=== PATIENT | female | born 1985 | race Caucasian/White ===

== ENCOUNTER 2016-12-13 13:00 | Outpatient (RCR) | payer OTHER ==
[2016-12-09 13:46] LABS: BASO % 0.6 % (0.0-2.0); EOS # 0.1 (0.0-0.7); EOS % 0.8 % (0-4.0); GRAN # 5.7 (1.4-6.5); GRAN % 85.8 % (42.2-75.2); HEMOGLOBIN 12.8 g/dl (12.5-16.0); LYMPH # 0.4 (1.2-3.4); LYMPH % 5.4 % (20.0-51.0); MEAN CELL VOLUME 89 fl (80.0-100.0); MEAN CORPUSCULAR HEMOGLOBIN 31 pg (27.0-31.0); MEAN CORPUSCULAR HGB CONC 35 g/dl (33.0-37.0); MEAN PLATELET VOLUME 10.1 fl (7.4-10.4); MONO # 0.5 (0.1-0.6); MONO % 7.2 % (1.7-9.3); PLATELET COUNT 323 K/mm3 (130-400); RED BLOOD COUNT 4.11 M/mm3 (4.10-5.30); REDCELL DISTRIBUTION WIDTH-CV 12.2 % (11.5-14.5); WHITE BLOOD COUNT 6.6 K/mm3 (4.8-10.8)
[2016-12-09 13:56] LABS: ADJUSTED CALCIUM 9.4 mg/dL (8.4-10.2); ALBUMIN 4.1 gm/dL (3.5-5.0); BILIRUBIN,TOTAL 0.7 mg/dL (0.0-1.0); CALCIUM 9.5 mg/dL (8.4-10.2); CREATININE, serum 0.91 mg/dL (0.52-1.25); TOTAL PROTEIN 7.4 gm/dL (6.4-8.2)
[2016-12-09 13:58] LABS: HEMATOCRIT 36.6 % (37.0-47.0)
[2016-12-11 13:58] VITALS: BP 130/79; PULSE 90; TEMP 98.7
[2016-12-12 14:42] VITALS: BP 141/84; PULSE 87; TEMP 98.4
[~2016-12-13] VITALS: Ht 165.1 cm; Wt 61.0 kg
[~2016-12-13 13:00] MED LIST: ADDERALL20 MG PO; ALEVE 220MG220 MG PO; BENADRYL50 MG PO; GILENYA0.5 MG PO; LO LOESTRIN FE1 TAB PO; MOTRIN 200200 MG/TAB PO; PRIL40 PO; PROVENTIL0.09 MG/A1 IH; TOPAMAX50 MG PO; ZYRTEC 10MG10 MG PO
[2016-12-13 13:17] VITALS: BP 143/88; PULSE 101; TEMP 98.3
== END 2016-12-14 13:36 | disposition home or self-care (01) ==
LOC: EUO 13:00
PROVIDERS: Psychiatry & Neurology Neurology
DX: G35 Multiple sclerosis (principal)
CPT/HCPCS: J2930; J7050

== ENCOUNTER → 2019-09-29 | Outpatient (CLI) | payer OTHER | LOC: COL.RAD 11:15 | DX: S93.411D Sprain of calcaneofibular ligament of right ankle, subsequent encounter (principal); G89.28 Other chronic postprocedural pain; Z98.890 Other specified postprocedural states ==

== ENCOUNTER 2020-01-31 18:08 | Emergency (ER) | payer OTHER ==
[~2020-01-31] VITALS: Ht 165.1 cm; Wt 95.5 kg
[2020-01-31 18:13] VITALS: TEMP 98.2
[2020-01-31] MEDS ORDERED: INDERAL 20MG20 MG PO (18:24)
[2020-01-31] MEDS ORDERED: HCTZ 25MG TAB25 MG PO (18:24)
[2020-01-31] MEDS ORDERED: TRAVEL SICKNESS25 MG PO (20:30)
[2020-01-31] MEDS ORDERED: ZOFRAN ODT4 MG PO (20:30)
[2020-01-31] MEDS ORDERED: VALIUM 5MG T5 MG/TAB PO (20:30)
[2020-01-31 21:12] LABS: COLLECTION METHOD CLEAN CATCH
[2020-01-31 21:18] LABS: PH 5 (5-8); SQUAMOUS EPITHELIAL 0-2 /hpf; URINE APPEARANCE Clear; URINE BACTERIA None Seen /hpf; URINE BILIRUBIN Negative (NEGATIVE); URINE BLOOD 2+ (NEGATIVE); URINE COLOR Yellow; URINE GLUCOSE Negative (NEGATIVE); URINE KETONE Negative (NEGATIVE); URINE LEUKOCYTE ESTERASE Negative (NEGATIVE); URINE NITRATE Negative (NEGATIVE); URINE PROTEIN(semi-quant) Negative (NEGATIVE); URINE RBC 0-2 /hpf; URINE UROBILINOGEN Negative (NEGATIVE)
[2020-01-31 22:10] VITALS: BP 132/70; PULSE 77
== END 2020-01-31 22:10 | disposition home or self-care (01) ==
LOC: COL.ER 18:08
PROVIDERS: Physician Assistant
DX: R51 Headache (principal); R42 Dizziness and giddiness; G35 Multiple sclerosis; Z86.69 Personal history of other diseases of the nervous system and sense organs
CPT/HCPCS: J1170; J2550; J3360; J7030